=== PATIENT | female | born 1955 | race Caucasian/White ===

== ENCOUNTER 2020-07-26 12:47 | Emergency (ER) | payer MEDICARE, BC, SELFPAY ==
[2020-07-26] VITALS (7 sets, daily range): BP systolic 76–137; BP diastolic 48–66; PULSE 60–80; RESP 15–22; TEMP 36.6; O2SAT 98–99; BMI 21.9
--- NOTE | 2020-07-26 13:19 | ED.SYNCOPE ---
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 Extensive aortic endarterectomy of the left external iliac endarterectomy right common femoral prof[place] [facility] [place] today via EMS from the grocery store with near syncopal episode. Apparently she took her p.o. Dilaudid prior to going grocery shopping without eating anything and felt lightheaded, warm and felt like she was going to pass out she lowered herself down and subsequently fell forward. She denies LOC. she initially was found by EMS to be hypotensive but quickly recovered after gradual fluids. She reports slight pain to the forehead area where there is a abrasion and diffuse ache like pain the the right lower leg ever since surgery on the July 08. She does look slightly pale Most history obtained [place] [facility] [place] his peers that she had complicated history there with frequent mild hypertension secondary to pain medications requiring sore. Off pressors and was subsequently discharged to [facility] short-term rehab from which she just got discharged couple days ago to home. States she otherwise has been doing well. I have read through over 20 pages of [facility] visit and please refer to this in the EMR. Related Data Home Medications Medication Instructions Recorded Confirmed atorvastatin 1 tab PO DAILY 07/26/20 07/26/20 hydrochlorothiazide 1 tab PO DAILY 07/26/20 07/26/20 pregabalin [Lyrica] 1 cap PO BEDTIME 07/26/20 07/26/20 pregabalin [Lyrica] 1 cap PO BID@0900,2100 07/26/20 07/26/20 Allergies Allergy/AdvReac Type Severity Reaction Status Date / Time gabapentin Allergy Unknown Unknown Verified 07/26/20 13:22 Review of Systems Review of Systems: Constitutional: No Weight loss, No Fever, No Chills, No Night Sweats, No Fatigue, No Malaise ENT/Mouth: No Hearing loss, No Ear Pain, No Nasal Congestion, No Sinus Pain, No Hoarseness, No sore throat, No Rhinorrhea, No Swallowing Difficulty Eyes: No Eye Pain, No Swelling, No Redness, No Foreign Body, No Discharge, No Vision Changes Cardiovascular: No Chest Pain, No SOB, No Dyspnea on Exertion, No Orthopnea, No Edema, No Palpitations Respiratory: No Cough, No Sputum, No Wheezing, No Smoke Exposure, No Dyspnea Gastrointestinal: No Nausea, No Vomiting, No Diarrhea, No Constipation, No abdominal Pain, No Hematochezia, No Melena Genitourinary: no irregular bleeding, No Dysuria, No Urinary Frequency, No Hematuria, No Urinary Incontinence, No Urgency, No Flank Pain Musculoskeletal: No joint pain, No Myalgias, No Joint Swelling Skin: No Skin Lesions, No rash Neuro: No Weakness, No Numbness, No Paresthesias, No Loss of Consciousness, No Dizziness Psych: No Social Issues Heme/Lymph: No Bruising, No Bleeding,No Lymphadenopathy Endocrine: No Polyuria, No Polydipsia, No Temperature Intolerance [facility] Past Medical History Medical History (Updated 07/26/20 @ 18:38 by Jose Sanders NP) Back pain High cholesterol HTN (hypertension) Social History Social History Alcohol intake: never Smoked in Last 30 Days: No Use of substances other than those prescribed or required for medical reasons: No Advance Directives: No Advance Directives Information Provided: No Physical Exam Vital Signs: Vital Signs: Last Vital Signs Temp 97.8 F 07/26/20 16:00 Pulse 80 07/26/20 16:00 Resp 22 H 07/26/20 16:00 BP 135/60 07/26/20 17:01 Pulse Ox 99 07/26/20 16:00 Body Mass Index 21.9 Reviewed Const: General: cooperative and healthy appearing; No acute distress or intoxicated appearing Nutritional Appearance: average body habitus Orientation/consciousness: patient oriented x3 HENMT: Head: Yes normal to inspection Head images: 1. Slight superficial abrasion, no hematoma. No crepitus or tenderness palpation. Ears: hearing grossly normal bilaterally Eyes: General: appearance normal, both eyes and all related structures Visual Harris: normal visual harris by confrontation Neck: Neck: Yes normal visual inspection, No positive Brudzinski's sign, No positive Kernig's sign and No tender Thyroid: Thyroid normal Chest: Chest palpation & inspection: normal inspection of the chest Resp: Effort & Inspection: normal respiratory effort Cardio: Jugular venous distension: no JVD GI: Inspection: Yes normal to inspection Percussion: Yes normal to percussion Auscultation: normal bowel sounds : General: Yes no CVA tenderness Back/Spine/Pelvis: Back: no CVA tenderness Skin: General skin exam: no rashes or lesions noted Neuro: General: patient oriented x3 Extrem: Other: Bilateral lower extremities pink warm, pulse is palpable. General: Yes normal to inspection Course Course Course Narrative: Labs, head CT rule out acute intracranial process i.e. bleed question being on blood thinner unsure how will get records from [facility] to confirm anticoagulant use status post vascular surgery likely she is on anticoagulant, given single episode status post bilateral femoral bypass will check CT of the chest and abdomen pelvis for PE/dissection. I did discuss case with Dr. Garcia radiologist likely will need a see this on CTA chest PE study/abdomen pelvis IV contrast. Pain in the right lower extremity ever since vascular surgery. Off note sounds as if she has had some problems with narcotics in the hospital as well as now on outpatient basis. I will discuss case with vascular surgery. Reevaluation(s) Reevaluation #1: Labs including repeat troponin unremarkable. 1. CTA CHEST: No evidence of pulmonary embolism. No acute abnormality of chest. 2. CT abdomen pelvis: No acute abnormality the abdomen or pelvis. There is a large volume of stool in the colon. There is no acute abnormality of the bowel. Body of the report; Vascular: There are extensive atherosclerotic vascular calcifications in abdomen and pelvis. No aneurysm of aorta. Aorta bifemoral bypass surgery. There is runoff via the bypass graft into the right lower extremity with anastomosis at the groin. Left limb of the bypass graft is anastomosed to the left common iliac artery and there is occlusion of the bypass graft distal to this anastomosis, coronal image 37. There is reconstitution of the left femoral artery in the groin. Again complains of diffuse right lower extremity pain not associated with exertion or any joint specifically. She is neurovascularly intact. Blood pressure actually slightly lower on the left lower extremity and bilateral upper extremity as well as right extremity blood pressures within normal limits. The CT scan findings as noted above concerning does . This was discussed with , aware there is no pain in the left lower extremity. Given these findings recommendation to be evaluated in the office the office will call her tomorrow to set up appointment for any further intervention. Patient is currently taking aspirin. She will continue this she is actually requesting discharge she is well-appearing I did ask her to take half the dose of her pain medications and when she does take anticipated on resting and be very cautious with her foot position change. I did educate on orthostatic blood pressure. She will increase her fluid intake, high-fiber diet and will follow up with vascular surgery at [facility]. MDM - Syncope Medical Records Attestation: I reviewed the patient's medical records. Medical records narrative: July 10 [facility] medical records including surgical and note reviewed from vascular surgery. Lab Data Attestation: I reviewed the patient's lab results. Result diagrams: 07/26/20 14:27 07/26/20 14:27 Labs: Lab Results 07/26/20 07/26/20 07/26/20 Range/Units 14:26 14:27 14:27 WBC 12.7 H (4.8-10.8) X10*3/uL RBC 3.16 L (4.20-5.50) X10*6/uL Hgb 10.1 L (12.0-16.0) g/dl Hct 31.1 L (37-47) % MCV 98.4 H (80-98) fL MCH 32.0 (27.0-33.0) pg MCHC 32.5 (31.0-35.0) g/dl RDW 12.3 (11.0-16.0) % Plt Count 411 H (160-400) X10*3/uL MPV 9.1 L (9.4-12.3) fL Immature Gran % (Auto) 0.6 H (0.0-0.4) % Neut % (Auto) 81.0 H (45-73) % Lymph % (Auto) 9.1 L (20-40) % Houghton % (Auto) 6.5 (2-11) % Eos % (Auto) 2.0 (0-4) % Baso % (Auto) 0.8 (0-2) % Lymph # (Auto) 1.2 (1.2-4.9) X10*3/uL Houghton # (Auto) 0.8 (0.1-1.2) X10*3/uL Eos # (Auto) 0.3 (0.0-0.4) X10*3/uL Baso # (Auto) 0.1 (0.0-0.2) X10*3/uL Abs Immat Gran (auto) 0.07 H (0.00-0.03) X10*3/uL Absolute Neuts (auto) 10.3 H (2.0-8.3) X10*3/uL Absolute Nucleated RBC 0.000 (0.0-0.012) X10*3/uL Nucleated RBC % (auto) 0.0 (0.0-0.2) /100WBC PT 12.7 (10.8-13.0) SEC INR 1.1 (0.9-1.1) APTT 22.9 L (24.1-38.0) SEC D-Dimer 3182 NG/ML Sodium (135-145) mmol/L Potassium (3.3-5.1) mmol/l Chloride (96-108) mmol/L Carbon Dioxide (22-29) mmol/L Anion Gap (12-20) BUN (9-16) mg/dL Creatinine (0.5-1.4) mg/dL Estim Creat Clear Calc Estimated GFR Random Glucose (60-115) mg/dL Calcium (8.4-10.2) mg/dL Magnesium (1.6-2.6) mg/dL Total Bilirubin (0.0-1.0) mg/dL AST (5-31) U/L ALT (0-31) U/L Alkaline Phosphatase (39-117) U/L Troponin I High Sens (<3.5-17.0) ng/L Total Protein (6.5-8.0) g/dL Albumin (3.5-5.0) g/dL Ethyl Alcohol < 10 mg/dL Coronavirus (PCR) (Negative) Influenza Type A (PCR) (Negative) Influenza Type B (PCR) (Negative) RSV RNA Qual (PCR) (Negative) 12/28/20 12/28/20 12/28/20 Range/Units 14:27 14:27 17:16 WBC (4.8-10.8) X10*3/uL RBC (4.20-5.50) X10*6/uL Hgb (12.0-16.0) g/dl Hct (37-47) % MCV (80-98) fL MCH (27.0-33.0) pg MCHC (31.0-35.0) g/dl RDW (11.0-16.0) % Plt Count (160-400) X10*3/uL MPV (9.4-12.3) fL Immature Gran % (Auto) (0.0-0.4) % Neut % (Auto) (45-73) % Lymph % (Auto) (20-40) % Houghton % (Auto) (2-11) % Eos % (Auto) (0-4) % Baso % (Auto) (0-2) % Lymph # (Auto) (1.2-4.9) X10*3/uL Houghton # (Auto) (0.1-1.2) X10*3/uL Eos # (Auto) (0.0-0.4) X10*3/uL Baso # (Auto) (0.0-0.2) X10*3/uL Abs Immat Gran (auto) (0.00-0.03) X10*3/uL Absolute Neuts (auto) (2.0-8.3) X10*3/uL Absolute Nucleated RBC (0.0-0.012) X10*3/uL Nucleated RBC % (auto) (0.0-0.2) /100WBC PT (10.8-13.0) SEC INR (0.9-1.1) APTT (24.1-38.0) SEC D-Dimer NG/ML Sodium 135 (135-145) mmol/L Potassium 4.8 (3.3-5.1) mmol/l Chloride 99 (96-108) mmol/L Carbon Dioxide 27 (22-29) mmol/L Anion Gap 14 (12-20) BUN 25 H (9-16) mg/dL Creatinine 1.03 (0.5-1.4) mg/dL Estim Creat Clear Calc 52.2 Estimated GFR 54 Random Glucose 112 (60-115) mg/dL Calcium 9.2 (8.4-10.2) mg/dL Magnesium 2.0 (1.6-2.6) mg/dL Total Bilirubin 0.4 (0.0-1.0) mg/dL AST 18 (5-31) U/L ALT 22 (0-31) U/L Alkaline Phosphatase 95 (39-117) U/L Troponin I High Sens < 3.5 < 3.5 (<3.5-17.0) ng/L Total Protein 6.5 (6.5-8.0) g/dL Albumin 3.8 (3.5-5.0) g/dL Ethyl Alcohol mg/dL Coronavirus (PCR) (Negative) Influenza Type A (PCR) (Negative) Influenza Type B (PCR) (Negative) RSV RNA Qual (PCR) (Negative) 07/26/20 Range/Units Unknown WBC (4.8-10.8) X10*3/uL RBC (4.20-5.50) X10*6/uL Hgb (12.0-16.0) g/dl Hct (37-47) % MCV (80-98) fL MCH (27.0-33.0) pg MCHC (31.0-35.0) g/dl RDW (11.0-16.0) % Plt Count (160-400) X10*3/uL MPV (9.4-12.3) fL Immature Gran % (Auto) (0.0-0.4) % Neut % (Auto) (45-73) % Lymph % (Auto) (20-40) % Houghton % (Auto) (2-11) % Eos % (Auto) (0-4) % Baso % (Auto) (0-2) % Lymph # (Auto) (1.2-4.9) X10*3/uL Houghton # (Auto) (0.1-1.2) X10*3/uL Eos # (Auto) (0.0-0.4) X10*3/uL Baso # (Auto) (0.0-0.2) X10*3/uL Abs Immat Gran (auto) (0.00-0.03) X10*3/uL Absolute Neuts (auto) (2.0-8.3) X10*3/uL Absolute Nucleated RBC (0.0-0.012) X10*3/uL Nucleated RBC % (auto) (0.0-0.2) /100WBC PT (10.8-13.0) SEC INR (0.9-1.1) APTT (24.1-38.0) SEC D-Dimer NG/ML Sodium (135-145) mmol/L Potassium (3.3-5.1) mmol/l Chloride (96-108) mmol/L Carbon Dioxide (22-29) mmol/L Anion Gap (12-20) BUN (9-16) mg/dL Creatinine (0.5-1.4) mg/dL Estim Creat Clear Calc Estimated GFR Random Glucose (60-115) mg/dL Calcium (8.4-10.2) mg/dL Magnesium (1.6-2.6) mg/dL Total Bilirubin (0.0-1.0) mg/dL AST (5-31) U/L ALT (0-31) U/L Alkaline Phosphatase (39-117) U/L Troponin I High Sens (<3.5-17.0) ng/L Total Protein (6.5-8.0) g/dL Albumin (3.5-5.0) g/dL Ethyl Alcohol mg/dL Coronavirus (PCR) NEGATIVE (Negative) Influenza Type A (PCR) NEGATIVE (Negative) Influenza Type B (PCR) NEGATIVE (Negative) RSV RNA Qual (PCR) NEGATIVE (Negative) Imaging Data Chest/pelvis CT: Radiologist's impression: [place] [id number] CT Scan Report Signed Patient: Alina Chowdhury#: [id number] : 4Acct:[id number] Age/Sex: 64 / FADM Date: 07/26/20 Loc: HO.ED Attending Dr: Ordering Physician: Jose Sanders TILTING SAW OPERATOR Date of Service: 07/26/20 Procedure(s): CT abdomen pelvis w con Accession Number(s): [id number] cc: Jose Sanders TILTING SAW OPERATOR~ EXAMINATION: CTA CHEST CT ABDOMEN AND PELVIS WITH CONTRAST CLINICAL INFORMATION: Syncope. Elevated d-dimer. Status post bilateral femoral bypass. COMPARISON: Chest x-ray 07/26/2020 TECHNIQUE: A noncontrast localizer was performed, followed by the administration of 75 mL Omnipaque [address] of the chest was then performed. Coronal and sagittal reformatted and 3-D technique MIP images of the chest were completed at the CT scanner and reviewed on the PACS workstation. No adverse effects were reported. Images were then performed through the abdomen and pelvis. Coronal and sagittal reformatted images performed at CT scanner by technologist. [This CT examination was performed using dose optimization techniques as appropriate, variously including the following: *Automated exposure control *Adjustment of mA and/or kV according to patient size (this includes techniques or standardized protocols for targeted exams where dose is matched to indication/reason for exam; i.e. extremities or head) *Use of iterative reconstruction technique] DLP: 356 mGy-cm. FINDINGS: CTA CHEST Vascular: The main pulmonary artery, secondary and tertiary branches of the pulmonary artery are normally opacified with no evidence of pulmonary embolism. No aneurysm or dissection of aorta. There is atherosclerotic vascular calcifications of the wall of the aorta. Mediastinum: No mediastinal mass. No significant lymphadenopathy. There is no pericardial effusion. Moderate volume of coronary artery calcifications. Lungs: The lungs are clear. No nodule or infiltrate. Central bronchial airways open. Fluid: There is no pericardial effusion. There is no pleural effusion. Axilla: No significant lymphadenopathy. Bilateral breast implants. CT SCAN ABDOMEN/PELVIS: Liver, Gallbladder and Biliary Tree: The liver is normal in size, shape, and attenuation. No focal hepatic lesion or biliary ductal dilatation is present. The gallbladder is unremarkable with no evidence of radiopaque gallstones, gallbladder wall thickening, or obvious pericholecystic inflammatory changes. Pancreas: Unremarkable. Spleen: Unremarkable. Adrenal Glands: Unremarkable. Kidneys and Ureters: The kidneys are normal in size, shape, and attenuation. No hydronephrosis, hydroureter, or calculi seen. No perinephric stranding. Bladder: Unremarkable. Gastrointestinal Tract: There is no acute abnormality. There is no bowel wall thickening /edema. There is no bowel obstruction. There is a large volume of stool throughout the colon. The appendix is nonvisualized . The small bowel loops are unremarkable. The stomach is normal. There is no hiatal hernia. Abdominal Wall: No significant hernia is appreciated. Lymph Nodes: Normal. Vascular: There are extensive atherosclerotic vascular calcifications in abdomen and pelvis. No aneurysm of aorta. Aorta bifemoral bypass surgery. There is runoff via the bypass graft into the right lower extremity with anastomosis at the groin. Left limb of the bypass graft is anastomosed to the left common iliac artery and there is occlusion of the bypass graft distal to this anastomosis, coronal image 37. There is reconstitution of the left femoral artery in the groin. Pelvic Viscera: Unremarkable. Osseous Structures: Unremarkable. CT/CT abdomen pelvis w con IMPRESSION: 1. CTA CHEST: No evidence of pulmonary embolism. No acute abnormality of chest. 2. CT abdomen pelvis: No acute abnormality the abdomen or pelvis. There is a large volume of stool in the colon. There is no acute abnormality of the bowel. Dictated By:BEATRIZ ARROYO MD Signed By:<Electronically signed by BEATRIZ ARROYO MD in OV>07/26/20 1739 DD/ 1546 TD/TT: Financial Compliance Officer: ROBERTA Head CT: Radiologist's impression: [place] [address] CT Scan Report Signed Patient: Alina Chowdhury#: [id number] : 4Acct:[id number] Age/Sex: 64 / FADM Date: 07/26/20 Loc: .ED Attending Dr: Ordering Physician: Jose Sanders NP Date of Service: 07/26/20 Procedure(s): CT head/brain wo con Accession Number(s): [id number] cc: Jose Sanders NP~ EXAMINATION: CT HEAD WITHOUT CONTRAST CLINICAL INFORMATION: Fall. COMPARISON: None TECHNIQUE: Contiguous axial imaging was performed from the skull base to vertex without intravenous administration of contrast. This CT examination was performed using dose optimization techniques as appropriate, variously including the following: *Automated exposure control *Adjustment of mA and/or kV according to patient size (this includes techniques or standardized protocols for targeted exams where dose is matched to indication/reason for exam; i.e. extremities or head) *Use of iterative reconstruction technique DLP: 585 mGy-cm FINDINGS: There is no evidence of acute intracranial hemorrhage or territorial infarction. No abnormal mass effect or midline shift is seen. Shanks to white matter differentiation is well preserved. No extra-axial fluid collections are identified. The ventricles are normal in size. There is no abnormal attenuation within the brain parenchyma. The osseous structures and soft tissues are normal. There is mild mucoperiosteal thickening bilateral ethmoid, sphenoid and frontal sinuses. Bilateral mastoid sinuses are clear. CT/CT head/brain wo con IMPRESSION: No acute intracranial process seen. Bilateral chronic pansinusitis. Dictated By:HERBERT GARCIA MD Signed By:<Electronically signed by HERBERT GARCIA MD in OV>07/26/20 1514 DD/ 1323 TD/TT: Financial Compliance Officer: DAVE ECG Data Interpretation: Normal sinus rhythm Rate [address] segment changes No previous available Discharge Plan Discharge Clinical Impression: Drug side effects, Near syncope, Constipation, Abnormal abdominal CT scan Patient Disposition: Home, Self-Care Instructions: Constipation (ED), Near Syncope (ED), Narcotic Safety (ED) Additional Instructions: The CT scan findings are reviewed with you Is very important for you to follow-up with the vascular surgery team I have discussed her case with him and they are dissipating her follow-up in the next 1-2 days the office will call you Home safety/proper medication use and hydration is very important High-fiber diet Return if any concerns or worsening symptoms Thank you Prescriptions: No Action atorvastatin 40 mg tablet 1 tab PO DAILY RF: 0 hydrochlorothiazide 25 mg tablet 1 tab PO DAILY RF: 0 pregabalin [Lyrica] 75 mg capsule 1 cap PO BEDTIME RF: 0 pregabalin [Lyrica] 150 mg capsule 1 cap PO BID@0900,2100 RF: 0 Referrals: Yuri Ross MD [Physician] - 1 day
--- NOTE | 2020-07-26 13:23 | ECG_ITS ---
Test Reason : FALL Blood Pressure : / mmHG Vent. Rate : 063 BPM Atrial Rate : 063 BPM P-R Int : 194 ms QRS Dur : 088 ms QT Int : 400 ms P-R-T Axes : 076 053 064 degrees QTc Int : 409 ms Sinus rhythm with marked sinus arrhythmia Otherwise normal ECG No previous ECGs available Referred By: Jose Sanders Electronically Signed By:REGAN FARIAS
--- NOTE | 2020-07-26 13:23 | CT_ITS ---
EXAMINATION: CT HEAD WITHOUT CONTRAST CLINICAL INFORMATION: Fall. COMPARISON: None TECHNIQUE: Contiguous axial imaging was performed from the skull base to vertex without intravenous administration of contrast. This CT examination was performed using dose optimization techniques as appropriate, variously including the following: *Automated exposure control *Adjustment of mA and/or kV according to patient size (this includes techniques or standardized protocols for targeted exams where dose is matched to indication/reason for exam; i.e. extremities or head) *Use of iterative reconstruction technique DLP: 585 mGy-cm FINDINGS: There is no evidence of acute intracranial hemorrhage or territorial infarction. No abnormal mass effect or midline shift is seen. Shanks to white matter differentiation is well preserved. No extra-axial fluid collections are identified. The ventricles are normal in size. There is no abnormal attenuation within the brain parenchyma. The osseous structures and soft tissues are normal. There is mild mucoperiosteal thickening bilateral ethmoid, sphenoid and frontal sinuses. Bilateral mastoid sinuses are clear. CT/CT head/brain wo con IMPRESSION: No acute intracranial process seen. Bilateral chronic pansinusitis.
--- NOTE | 2020-07-26 13:23 | XR_ITS ---
EXAMINATION: XR CHEST CLINICAL INFORMATION: Fall, trauma COMPARISON: None TECHNIQUE: Portable upright AP view of the chest was obtained. FINDINGS: The lungs are clear. There is no pneumothorax, vascular congestion, pleural reaction or effusion. The heart is normal in size and the hilar and mediastinal contours are normal. No visible acute bony abnormality. XR/XR chest 1V IMPRESSION: Unremarkable examination.
[2020-07-26 14:30] LABS: Influenza A PCR NEGATIVE (Negative); Influenza B PCR NEGATIVE (Negative); Resp Syncy Virus RNA Qual PCR NEGATIVE (Negative); SARS COV2 PCR INHOUSE NEGATIVE (Negative)
[2020-07-26 14:33] LABS: Basophils Absolute Auto 0.1 X10*3/uL (0.0-0.2); Basophils Percent Auto 0.8 % (0-2); Eosinophils Absolute Auto 0.3 X10*3/uL (0.0-0.4); Hematocrit 31.1 % (37-47); Hemoglobin 10.1 g/dl (12.0-16.0); Imm Gran Abs Auto 0.07 X10*3/uL (0.00-0.03); Imm Gran Pct Auto 0.6 % (0.0-0.4); Lymphocytes Absolute Auto 1.2 X10*3/uL (1.2-4.9); Lymphocytes Percent Auto 9.1 % (20-40); MANUAL DIFF FLAG NO; Mean Corpuscular HGB Conc 32.5 g/dl (31.0-35.0); Mean Corpuscular Volume 98.4 fL (80-98); Mean Platelet Volume 9.1 fL (9.4-12.3); Monocytes Absolute Auto 0.8 X10*3/uL (0.1-1.2); Monocytes Percent Auto 6.5 % (2-11); Neutrophils Absolute Auto 10.3 X10*3/uL (2.0-8.3); Platelet Count 411 X10*3/uL (160-400); Red Blood Count 3.16 X10*6/uL (4.20-5.50); Red Cell Distribution Width 12.3 % (11.0-16.0); White Blood Count 12.7 X10*3/uL (4.8-10.8)
[2020-07-26 14:39] LABS: INTERNATIONAL NORM RATIO 1.1 (0.9-1.1); Prothrombin Time 12.7 SEC (10.8-13.0)
[2020-07-26 14:49] LABS: D Dimer 3182 NG/ML; Partial Thromboplastin Time 22.9 SEC (24.1-38.0)
[2020-07-26 15:08] LABS: Ethanol < 10 mg/dL
[2020-07-26 15:11] LABS: Alanine Aminotransferase 22 U/L (0-31); Albumin Level 3.8 g/dL (3.5-5.0); Alkaline Phosphatase 95 U/L (39-117); Anion Gap 14 (12-20); Aspartate Amino Transferase 18 U/L (5-31); Bilirubin Total 0.4 mg/dL (0.0-1.0); Blood Urea Nitrogen 25 mg/dL (9-16); Calcium 9.2 mg/dL (8.4-10.2); Carbon Dioxide 27 mmol/L (22-29); Chloride 99 mmol/L (96-108); Creatinine Clr Calc Pharmacy 52.2; Estimated Glomerular Filt Rate 54; Glucose Random 112 mg/dL (60-115); Potassium 4.8 mmol/l (3.3-5.1); Sodium 135 mmol/L (135-145); Total Protein 6.5 g/dL (6.5-8.0)
[2020-07-26 15:14] LABS: Troponin-I High Sensitivity < 3.5 ng/L (<3.5-17.0)
--- NOTE | 2020-07-26 15:46 | CT_ITS ---
EXAMINATION: CTA CHEST CT ABDOMEN AND PELVIS WITH CONTRAST CLINICAL INFORMATION: Syncope. Elevated d-dimer. Status post bilateral femoral bypass. COMPARISON: Chest x-ray 07/26/2020 TECHNIQUE: A noncontrast localizer was performed, followed by the administration of 75 mL Omnipaque [address] of the chest was then performed. Coronal and sagittal reformatted and 3-D technique MIP images of the chest were completed at the CT scanner and reviewed on the PACS workstation. No adverse effects were reported. Images were then performed through the abdomen and pelvis. Coronal and sagittal reformatted images performed at CT scanner by technologist. [This CT examination was performed using dose optimization techniques as appropriate, variously including the following: *Automated exposure control *Adjustment of mA and/or kV according to patient size (this includes techniques or standardized protocols for targeted exams where dose is matched to indication/reason for exam; i.e. extremities or head) *Use of iterative reconstruction technique] DLP: 356 mGy-cm. FINDINGS: CTA CHEST Vascular: The main pulmonary artery, secondary and tertiary branches of the pulmonary artery are normally opacified with no evidence of pulmonary embolism. No aneurysm or dissection of aorta. There is atherosclerotic vascular calcifications of the wall of the aorta. Mediastinum: No mediastinal mass. No significant lymphadenopathy. There is no pericardial effusion. Moderate volume of coronary artery calcifications. Lungs: The lungs are clear. No nodule or infiltrate. Central bronchial airways open. Fluid: There is no pericardial effusion. There is no pleural effusion. Axilla: No significant lymphadenopathy. Bilateral breast implants. CT SCAN ABDOMEN/PELVIS: Liver, Gallbladder and Biliary Tree: The liver is normal in size, shape, and attenuation. No focal hepatic lesion or biliary ductal dilatation is present. The gallbladder is unremarkable with no evidence of radiopaque gallstones, gallbladder wall thickening, or obvious pericholecystic inflammatory changes. Pancreas: Unremarkable. Spleen: Unremarkable. Adrenal Glands: Unremarkable. Kidneys and Ureters: The kidneys are normal in size, shape, and attenuation. No hydronephrosis, hydroureter, or calculi seen. No perinephric stranding. Bladder: Unremarkable. Gastrointestinal Tract: There is no acute abnormality. There is no bowel wall thickening /edema. There is no bowel obstruction. There is a large volume of stool throughout the colon. The appendix is nonvisualized . The small bowel loops are unremarkable. The stomach is normal. There is no hiatal hernia. Abdominal Wall: No significant hernia is appreciated. Lymph Nodes: Normal. Vascular: There are extensive atherosclerotic vascular calcifications in abdomen and pelvis. No aneurysm of aorta. Aorta bifemoral bypass surgery. There is runoff via the bypass graft into the right lower extremity with anastomosis at the groin. Left limb of the bypass graft is anastomosed to the left common iliac artery and there is occlusion of the bypass graft distal to this anastomosis, coronal image 37. There is reconstitution of the left femoral artery in the groin. Pelvic Viscera: Unremarkable. Osseous Structures: Unremarkable. CT/CT angio chest PE protocol IMPRESSION: 1. CTA CHEST: No evidence of pulmonary embolism. No acute abnormality of chest. 2. CT abdomen pelvis: No acute abnormality the abdomen or pelvis. There is a large volume of stool in the colon. There is no acute abnormality of the bowel.
[2020-07-26] MEDS: iohexoL 350 MG/ML 100 ML INFUS..BTL IV (16:40)
[2020-07-26 18:02] LABS: Troponin-I High Sensitivity < 3.5 ng/L (<3.5-17.0)
--- NOTE | 2020-07-26 18:26 | PC.NURSE ---
pedal pulse + by doppler. Patient to be discharged home, kanika called for ride home
== END 2020-07-26 19:03 | disposition home or self-care (01) ==
PROVIDERS: Nurse Practitioner Primary Care; Emergency Provider Emergency Medicine Emergency Medical Services
DX: R55 Syncope and collapse (principal); T40.2X5A Adverse effect of other opioids, initial encounter; Y92.512 Supermarket, store or market as the place of occurrence of the external cause; S00.01XA Abrasion of scalp, initial encounter; R93.0 Abnormal findings on diagnostic imaging of skull and head, not elsewhere classified; I10 Essential (primary) hypertension; E78.5 Hyperlipidemia, unspecified; W19.XXXA Unspecified fall, initial encounter; Y93.89 Activity, other specified; Y99.9 Unspecified external cause status; Z20.828 Contact with and (suspected) exposure to other viral communicable diseases
CPT/HCPCS: 0241U; 36415; 70450; 71045; 71275; 74177; 80053; 80320; 83735; 84484; 85025; 85379; 85610; 85730; 93005; 99284; 99285; Q9967